=== PATIENT | female | born 1995 | race Caucasian/White ===

== ENCOUNTER 2017-09-13 05:25 | Emergency (ER) | payer MEDICAID ==
[~2017-09-13] VITALS: Ht 162.6 cm; Wt 61.2 kg
[~2017-09-13 05:25] MED LIST: ACCUTANE PO; CEPH-569 PO; IBUP-1953 PO; SULF1TAB48 PO
[2017-09-13 05:30] VITALS: BP 112/82
== END 2017-09-13 06:28 | disposition home or self-care (01) ==
LOC: ER 05:37
DX: J02.0 Streptococcal pharyngitis (principal); J45.909 Unspecified asthma, uncomplicated
CPT/HCPCS: A4606; Z7610

== ENCOUNTER 2019-03-04 04:20 | Emergency (ER) | payer MEDICAID ==
[~2019-03-04] VITALS: Ht 162.6 cm; Wt 63.5 kg
--- NOTE | 2019-03-04 04:33 | NUR ---
PT BIBS. C/O "HAVING ABD PAIN. +N/V FOR A FEW HRS NOW" -SB AOX4 AMBULATORY VSS AT THIS TIME.
[2019-03-04 04:58] LABS: BASOPHILS # (AUTO) 0.1 /CMM (0.0-0.2); BASOPHILS % (AUTO) 0.7 % (0.0-2.0); HEMOGLOBIN 13.2 g/dL (11.5-14.8); MONOCYTES # (AUTO) 0.8 /CMM (0.1-1.30); WHITE BLOOD COUNT (AUTO) 8.5 K/uL (4.3-11.0)
[2019-03-04] MEDS ORDERED: IV NS 0.9% 1,000 ML BAG IV ONE (05:00)
[2019-03-04] MEDS ORDERED: ONDANSETRON HCL/PF 4 MG/2 ML VIAL IVP ONE (05:00)
[2019-03-04] MEDS ORDERED: MORPHINE SULFATE INJ 2 MG/ML DISP.SYRIN IV ONE (05:00)
[2019-03-04] MEDS ORDERED: ONDANSETRON HCL/PF 4 MG/2 ML VIAL ONE (05:01)
[2019-03-04] MEDS ORDERED: MORPHINE SULFATE INJ 4 MG/ML DISP.SYRIN ONE (05:02)
[2019-03-04 05:03] LABS: EOSINOPHILS % (AUTO) 1.1 % (0.0-6.0); HEMATOCRIT 40 % (33-45); LYMPHOCYTES # (AUTO) 3.6 /CMM (0.8-4.8); LYMPHOCYTES % (AUTO) 42.2 % (20.0-44.0); MEAN CORPUSCULAR HGB CONC 33 g/dl (31.0-36.0); MEAN CORPUSCULAR VOLUME 86 fL (82-100); MONOCYTES % (AUTO) 9.8 % (2.0-12.0); NEUTROPHILS # (AUTO) 3.9 /CMM (1.8-8.9); NEUTROPHILS % (AUTO) 46.2 % (43.0-81.0); PLATELET COUNT (AUTO) 319 /CMM (150-450); RED BLOOD CELL COUNT(AUTO) 4.62 MIL/uL (4.0-5.2)
[2019-03-04 05:06] LABS: CALCIUM, SERUM 9.8 mg/dL (8.5-10.1); CREATININE 0.9 mg/dL (0.6-1.3); POTASSIUM 3.9 mmol/L (3.5-5.1)
[2019-03-04 05:12] LABS: ALBUMIN 4.2 g/dL (3.4-5.0); BILIRUBIN,DIRECT 0.1 mg/dL (0.0-0.2); BILIRUBIN,TOTAL 0.3 mg/dL (0.2-1.0); TOTAL PROTEIN, SERUM 7.7 g/dL (6.4-8.2)
[2019-03-04] MEDS ORDERED: IV NS 0.9% 250 ML IV ONE (05:15)
[2019-03-04] MEDS ORDERED: CT SWABBABLE VALVE TRANS SET 1 EA INFUS.SET MC ONE (05:15)
[2019-03-04] MEDS ORDERED: IOHEXOL-300 100 ML VIAL IV ONE (05:15)
--- NOTE | 2019-03-04 05:15 | NUR ---
US AT BEDSIDE.
--- NOTE | 2019-03-04 05:59 | NUR ---
PT TAKEN TO RADIOLOGY.
[2019-03-04 06:00] LABS: APPEARANCE,URINE Clear (CLEAR); BILIRUBIN,URINE Negative (NEGATIVE); BLOOD, URINE Negative Ery/uL (NEGATIVE); COLOR,URINE Light yellow (YELLOW); KETONES,URINE Negative (NEGATIVE); LEUKOCYTE ESTERASE ,URINE Negative (NEGATIVE); NITRITE, URINE Negative (NEGATIVE); PROTEIN,URINE Negative (NEGATIVE); UGLUCOSE Negative (NEGATIVE); UROBILINOGEN,URINE 0.2 EU/dL (0.2)
[2019-03-04] MEDS ORDERED: KETOROLAC TROMETHAMINE 15 MG/ML VIAL ONE (07:23)
[2019-03-04] MEDS ORDERED: KETOROLAC TROMETHAMINE INJ 30 MG/ML VIAL IV ONE (07:30)
--- NOTE | 2019-03-04 08:07 | NUR ---
DIV removed. Catheter intact and site benign. Pressure and 4x4 applied to site. No bleeding noted.Patient discharged to home in stable condition. Written and verbal after care instructions given. Patient verbalizes understanding of instruction.
[2019-03-04 08:09] VITALS: BP 131/83
== END 2019-03-04 08:09 | disposition home or self-care (01) ==
LOC: ER 04:25
DX: R10.30 Lower abdominal pain, unspecified (principal); R11.0 Nausea; J45.909 Unspecified asthma, uncomplicated; Z79.899 Other long term (current) drug therapy
CPT/HCPCS: 36415; 74177; 76856; 80048; 80076; 81001; 83690; 84703; 85025; 96374; 96375; 99284; J1885; J2405; J7030; J7050; Q9967; 81000-TC; J2270